=== PATIENT | male | born 2000 | race Caucasian/White ===

== ENCOUNTER 2025-04-28 09:09 | Emergency (ER) | payer BC, OTHER, SELFPAY ==
[2025-04-28 09:17] VITALS: BP 143/81
[2025-04-28 10:10] VITALS: BP 121/83; BMI 30.6
--- NOTE | 2025-04-28 10:11 | EDRN ---
Yousif Flores PA in to see pt.
--- NOTE | 2025-04-28 10:12 | ED.GENMED ---
History of Present Illness
General
Chief Complaint: Musculo-Skeletal Complaint
Source: patient
Time Seen by Provider: 04/28/25 10:03
History of Present Illness
History of Present Illness:
25-year-old male presenting to the ER for evaluation of left foot pain following an accidental fall yesterday resulting in pain to the lateral aspect of the foot. Today he had continued difficulty ambulating secondary to the pain prompting him to
come into the ER for further evaluation. No other injuries were sustained. Denies any previous history of injury or surgery
Past History
Past History
ED Past Medical History: Psychiatric
ED Past Surgical History: None
Social History
Tobacco: Non-smoker
Alcohol: None
Drug: None
Personal: Single
Living: with family
Review of Systems
Review of Systems
All Other Systems: ROS reviewed and negative except as documented in HPI and ROS
Phy Exam
Physical Exam
Physical Exam:
GENERAL: Alert , in no apparent distress
EYE: conjunctiva clear
Head: Normocephalic atraumatic
NECK: Supple,
ENT: mmm.
LUNGS: no acute respiratory distress
NEUROLOGICAL: Alert and oriented
SKIN: Warm and dry, skin intact.
MUSCULOSKELETAL: well perfused. Left foot: Mild soft tissue swelling and ecchymosis along the lateral aspect of the foot around the 3rd through 5th metatarsal. Tenderness in this area. Easily palpable pedal pulse and tibial pulse. Cap refill
less than 2 seconds. Calcaneal tendon intact. No direct tenderness to the base of the fifth metatarsal. No proximal tib-fib tenderness. No tenderness over the medial or lateral malleoli with
PSYCH: Normal and appropriate interaction.
Scores
Heart Failure Risk
Heart Failure Risk Score: Not Applicable
Heart Score for Chest Pain Patients
STEMI patient?: Not applicable
Withdrawal Assessment of Alcohol
Withdrawal Assessment Completed?: Not applicable
Course
Orders/Labs/Results
Orders:
Orders
10/27/25 09:10
Foot, Left 3 View [CR Foot - Left Min 3 Views] Urgent
Comment:
Reason For Exam: pain
04/28/25 10:12
Ortho Boot Left- Treatment ONCE
Short or tall?: Short
04/28/25 10:13
Ibuprofen [Motrin] 600 mg PO NOW STA
Vital Signs
Initial and Last Documented VS:
Initial Vital Signs
Temp Pulse Resp BP Pulse Ox
99 F 71 16 143/81 98
04/28/25 09:17 04/28/25 09:17 04/28/25 09:17 04/28/25 09:17 04/28/25 09:17
Last Documented Vital Signs
Temp Pulse Resp BP Pulse Ox
99 F 63 16 121/83 98
04/28/25 09:17 04/28/25 10:10 04/28/25 10:10 04/28/25 10:10 04/28/25 10:13
MDM/Problems Addressed
Differential Diagnosis Includes:
Sprain
Contusion
Fracture
MDM/Problems Addressed:
25-year-old male presenting to the ER for evaluation of left foot pain following an accidental fall. X-ray formed shows no acute fracture. Will place an orthopedic boot for comfort. Information for orthopedics provided. Suspect sprain is most
likely diagnosis. NSAIDs/Tylenol as needed for pain, RICE recommendations discussed. Stable for discharge home.
*Radiology
Radiology exam reviewed: preliminary read by ED provider (No acute fracture)
*Pulse Oximetry
SaO2: 98
Oxygen Mode of Delivery: Room air
Patient hypoxic: no
*Critical Care Note
Total Time (30-74mins, 75-104mins- exclusive of procedures): Not Applicable
ED Attending Note
-
Portions of this chart may have been created with voice recognition software.� Occasional wrong word or��sound alike� substitutions may have occurred due to the inherent limitations of voice recognition software.
Discharge Plan
Departure
Patient Disposition: Home (Routine Discharge)
Date of Disposition: 04/28/25
Time of Disposition: 10:12
Patient with high blood pressure during this ER visit?: No
Discharge Problem:
Sprain of foot, left
Instructions: Foot sprain - ED (DC)
Prescriptions:
No Action
sertraline 100 MG tablet
150 mg PO HS
Intuniv
1 tab PO HS
tamsulosin 0.4 MG capsule
0.4 mg PO DAILY Qty: 10 0RF
Referrals:
Henok Barksdale DPM [Active, Podiatry]
Interventions
Interventions:
*Risk Screen - Suicide Last Done: 04/28/25 10:10
*General Assessment Last Done: 04/28/25 10:10
*Neglect/Abuse Screening Last Done: 04/28/25 10:10
*ED- Fall Risk Assessment Last Done: 04/28/25 10:10
*ED COVID-19 Vaccine History Last Done: 04/28/25 10:10
*ED Influenza Vaccine History Last Done: 04/28/25 10:10
ED-Musculoskeletal Assessment Last Done: 04/28/25 10:10
Discharge Date and Time
Print Language: CHINESE
[2025-04-28] MEDS: MOTRIN 600 MG PO (10:20)
== END 2025-04-28 10:39 | disposition home or self-care (01) ==
LOC: EMR 09:09
PROVIDERS: EMERGENCY PHYSICIAN Emergency Medicine; FAMILY PHYSICIAN Family Medicine
DX: S93.602A Unspecified sprain of left foot, initial encounter (principal); S90.32XA Contusion of left foot, initial encounter; W19.XXXA Unspecified fall, initial encounter
CPT/HCPCS: 99283; 29515; 73630